=== PATIENT | male | born 1995 | race Caucasian/White ===

== ENCOUNTER 2022-03-31 20:00 | Emergency (ER) | payer OTHER, BC ==
[2022-03-31 20:23] LABS: Glucose,Whole Blood 120 mg/dL (70-110)
[2022-03-31 21:40] LABS: Amorphous Sediment,Urine Rare /hpf; Appearance,Urine Clear (Clear); Bilirubin,Urine Negative (Negative); Blood,Urine Negative (Negative); Color,Urine Yellow; Glucose,Urine (UA) Negative (Negative); Ketones,Urine 1+ (Negative); Leukocyte Esterase,Urine Negative (Negative); Mucus,Urine Many /hpf; Nitrite,Urine Negative (Negative); PH, Urine 5.5 (5.0-8.0); Protein,Urine 1+ (Negative); RBC,Urine <1 /hpf (0-5); Specific Gravity,Urine 1.036 (1.001-1.035); Squamous Epithelial Cell,Urine 1 /hpf (0-4); Urobilinogen,Urine <2.0 mg/dL (<2.0); WBC,Urine 2 /hpf (0-5)
[2022-03-31 22:19] LABS: Basophils % (A) 0 %; Eosinophils # (A) 0.2 k/uL (0-0.7); Eosinophils % (A) 1 %; HCT 46.7 % (39.0-53.0); Lymphocytes # (A) 0.3 k/uL (1.0-4.8); Lymphocytes % (A) 2 %; MCH 28.2 pg (25.0-35.0); MCHC 34.2 g/dL (31.0-37.0); MCV 82.6 fL (80.0-100.0); Monocytes # (A) 0.5 k/uL (0-1.0); Monocytes % (A) 4 %; Neutrophils % (A) 92 %; Platelet Count 224 k/uL (150-450); RBC 5.65 m/uL (4.30-5.90); RDW 12.4 % (11.5-15.5); WBC 14.2 k/uL (3.8-10.6)
[2022-03-31 22:34] LABS: ALT 25 U/L (4-49); AST 29 U/L (17-59); African American GFR (CKD) >90 (>60 ml/min/1.73 sqM); Albumin 4.8 g/dL (3.5-5.0); Alkaline Phosphatase 75 U/L (38-126); Amylase 51 U/L (30-110); Anion Gap 9 mmol/L; Blood Urea Nitrogen 21 mg/dL (9-20); Calcium 8.8 mg/dL (8.4-10.2); Carbon Dioxide 25 mmol/L (22-30); Chloride 105 mmol/L (98-107); Glucose 126 mg/dL (74-99); Lipase 26 U/L (23-300); Non-African American GFR(CKD) >90 (>60 ml/min/1.73 sqM); Potassium 4.6 mmol/L (3.5-5.1); Sodium 139 mmol/L (137-145); Total Bilirubin 1.2 mg/dL (0.2-1.3); Total Protein 7.5 g/dL (6.3-8.2)
[2022-03-31] MEDS ORDERED: MECLIZINE 12.5 MG TAB PO STA (22:41)
[2022-03-31] MEDS ORDERED: SODIUM CHLORIDE 0.9% 1,000 ML IV STA (22:41)
[2022-03-31] MEDS ORDERED: ONDANSETRON 4 MG/2 ML VIAL IVP STA (22:41)
--- NOTE | 2022-04-01 00:31 | ED ---
General Adult HPI - General Chief complaint: Dizziness Stated complaint: light headed,vomiting Time Seen by Provider: 03/31/22 22:24 Source: patient, RN notes reviewed, old records reviewed Mode of arrival: ambulatory Limitations: no limitations - History of Present Illness Initial comments: Patient is a 26-year-old male with past medical history remarkable for intermittent episodes of dizzy spells presents emergency Department complaining of some dizzy spells but also nausea, vomiting, diarrhea with some mild abdominal discomfort. This began over the last 2 days. Believes he may be dehydrated. Presents with family. Denies any chest pain or shortness of breath. States that the dizzy spells and intermittent. He denies any dizziness. Describes as a lightheadedness sensation. Denies any headaches, blurry vision. Denies any known sick contacts. Denies upper respiratory symptoms. Denies any urinary complaints including dysuria or hematuria. Presents for further evaluation at this time. - Related Data Previous Rx's Medication Instructions Recorded Meclizine [Antivert] 25 mg PO BID PRN 5 Days #10 tab 04/01/22 Allergies Allergy/AdvReac Type Severity Reaction Status Date / Time No Known Allergies Allergy Verified 03/31/22 20:23 Review of Systems ROS Statement: Those systems with pertinent positive or pertinent negative responses have been documented in the HPI. Review of Systems: CONST: Denies fever EYES: Denies blurry vision ENT: Denies nasal congestion C/V: Denies Chest pain RESP: Denies shortness of breath GI: Endorses mild lower abdominal discomfort. : Denies dysuria SKIN: Denies rash. MSK: Denies joint pain. NEURO: Denies headache ROS Other: All systems not noted in ROS Statement are negative. Past Medical History Past Medical History: No Reported History Past Surgical History: No Surgical Hx Reported Past Psychological History: No Psychological Hx Reported Smoking Status: Never smoker Past Alcohol Use History: None Reported Past Drug Use History: None Reported General Exam - General Exam Comments Initial Comments: General: Appears in no acute distress. HEAD: Normal with no signs of head trauma. EYES: PERRLA, EOMI, conjunctiva normal, no discharge. ENT: Hearing grossly intact, normal oropharynx. RESPIRATORY: Clear breath sounds bilaterally. No wheezes, rales, or rhonchi. C/V: Regular rate and rhythm. S1 and S2 auscultated, no edema, peripheral pulses 2+ and intact throughout ABD: Abd is soft, nontender, nondistended. No guarding. No peritoneal signs. No rebound tenderness. EXT: Normal range of motion, no obvious deformity SKIN: No rashes or lesions observed on exposed skin. NEURO: Alert and oriented 4. No focal deficits. Cerebellar function intact as evident by normal finger nose testing, [id number] testing. Absence of dysdiadochokinesia. Able to ambulate without difficulty. Limitations: no limitations Course Vital Signs 03/31/22 03/31/22 04/01/22 20:19 22:34 00:03 Temperature 98.4 F 99.1 F 98.9 F Pulse Rate 95 99 89 Respiratory 16 17 17 Rate Blood Pressure 110/76 113/67 115/68 O2 Sat by Pulse 99 96 99 Oximetry 04/01/22 00:38 Temperature 98.7 F Pulse Rate 86 Respiratory 16 Rate Blood Pressure 118/70 O2 Sat by Pulse 99 Oximetry Medical Decision Making - Medical Decision Making Based on the patient's presentation and physical exam, patient presents complaining of lightheadedness/dizziness which is chronic for him but with new onset nausea, vomiting, diarrhea. Vital signs within acceptable limits. Exam is unremarkable. We will obtain basic laboratory studies, as well as viral swabs. Patient was in agreement this plan. He will be given meclizine, IV Zofran, IV fluids. Patient's laboratory studies are remarkable for mild leukocytosis of 14.2 which is likely reactive. Covid, flu, RSV negative. Remainder the patient's labs are within acceptable limits. On reevaluation, patient is feeling improved. I do believe it is safe for him to be discharged home at this time. He was in agreement with this plan. Strict return precautions were discussed I instructed the patient to follow up with their PCP in the next 1-3 days. I explained that the patient should return to the emergency department if they experience any worsening symptoms. Strict return precautions were discussed with the patient. The patient expressed understanding of these instructions. I answered all questions that the patient had. The patient was discharged home in good condition with their prescriptions and follow up information. Was pt. sent in by a medical professional or institution (, PA, REVENUE DIRECTOR, urgent care, hospital, or shelter...) When possible be specific @ -No Did you speak to anyone other than the patient for history (EMS, parent, family, police, friend...)? What history was obtained from this source @ -No Did you review nursing and triage notes (agree or disagree)? Why? @ -I reviewed and agree with nursing and triage notes Were old charts reviewed (outside hosp., previous admission, EMS record, old EKG, old radiological studies, urgent care reports/EKG's, shelter records)? Report findings @ -No old charts were reviewed Differential Diagnosis (chest pain, altered mental status, abdominal pain women, abdominal pain men, vaginal bleeding, weakness, fever, dyspnea, syncope, headache, dizziness, GI bleed, back pain, seizure, CVA, palpatations, mental health)? @ -Dehydration, infection, vertigo, viral syndrome and this list is not all encompassing. EKG interpreted by me (3pts min.). @ -As above X-rays interpreted by me (1pt min.). @ -None done CT interpreted by me (1pt min.). @ -None done U/S interpreted by me (1pt. min.). @ -None done What testing was considered but not performed or refused? (CT, X-rays, U/S, labs)? Why? @ -None What meds were considered but not given or refused? Why? @ -None Did you discuss the management of the patient with other professionals (darleen nevarez ipadmaja Barry, PA, REVENUE DIRECTOR, lab, RT, psych nurse, social services specialist, dye house helper, teacher, housing management officer, immigration case worker)? Give summary @ -No Was smoking cessation discussed for >3mins.? @ -No Was critical care preformed (if so, how long)? @ -No Were there social determinants of health that impacted care today? How? (Homelessness, low income, unemployed, alcoholism, drug addiction, transportatio n, low edu. Level, literacy, decrease access to med. care, group home, rehab)? @ -No Was there de-escalation of care discussed even if they declined (Discuss DNR or withdrawal of care, Hospice)? DNR status @ -No What co-morbidities impacted this encounter? (DM, HTN, Smoking, COPD, CAD, Cancer, CVA, ARF, Chemo, Hep., AIDS, mental health diagnosis, sleep apnea, morbid obesity)? @ -None Was patient admitted / discharged? Hospital course, mention meds given and route, prescriptions, significant lab abnormalities, going to OR and other pertinent info. @ -Discharged home. See above for ED course. Undiagnosed new problem with uncertain prognosis? @ -No Drug Therapy requiring intensive monitoring for toxicity (Heparin, Nitro, Insulin, Cardizem)? @ -No Were any procedures done? @ -No Diagnosis/symptom? @ -Nausea, vomiting, and diarrhea. Acute, or Chronic, or Acute on Chronic? @ -Acute Uncomplicated (without systemic symptoms) or Complicated (systemic symptoms)? @ -Uncomplicated Side effects of treatment? @ -No Exacerbation, Progression, or Severe Exacerbation? @ -No Poses a threat to life or bodily function? How? (Chest pain, [place], IA, pneumonia, PE, COPD, DKA, ARF, appy, cholecystitis, CVA, Diverticulitis, Homicidal, Suicidal, threat to staff... and all critical care pts) @ -No Diagnosis/symptom? @ -Lightheaded Acute, or Chronic, or Acute on Chronic? @ -Acute Uncomplicated (without systemic symptoms) or Complicated (systemic symptoms)? @ -Uncomplicated Side effects of treatment? @ -none Exacerbation, Progression, or Severe Exacerbation] @ -no Poses a threat to life or bodily function? @ -no - Lab Data Result diagrams: 03/31/22 21:51 03/31/22 21:51 Lab Results 03/31/22 03/31/22 03/31/22 Range/Units 20:21 20:50 21:51 WBC 14.2 H (3.8-10.6) k/uL RBC 5.65 (4.30-5.90) m/uL Hgb 16.0 (13.0-17.5) gm/dL Hct 46.7 (39.0-53.0) % MCV 82.6 (80.0-100.0) fL MCH 28.2 (25.0-35.0) pg MCHC 34.2 (31.0-37.0) g/dL RDW 12.4 (11.5-15.5) % Plt Count 224 (150-450) k/uL MPV 8.0 Neutrophils % 92 % Lymphocytes % 2 % Monocytes % 4 % Eosinophils % 1 % Basophils % 0 % Neutrophils # 13.0 H (1.3-7.7) k/uL Lymphocytes # 0.3 L (1.0-4.8) k/uL Monocytes # 0.5 (0-1.0) k/uL Eosinophils # 0.2 (0-0.7) k/uL Basophils # 0.0 (0-0.2) k/uL Sodium (137-145) mmol/L Potassium (3.5-5.1) mmol/L Chloride (98-107) mmol/L Carbon Dioxide (22-30) mmol/L Anion Gap mmol/L BUN (9-20) mg/dL Creatinine (0.66-1.25) mg/dL Est GFR (CKD-EPI)AfAm (>60 ml/min/1.73 sqM) Est GFR (CKD-EPI)NonAf (>60 ml/min/1.73 sqM) Glucose (74-99) mg/dL POC Glucose (mg/dL) 120 H (70-110) mg/dL POC Glu Parent Partner ID Jez Monreal Calcium (8.4-10.2) mg/dL Total Bilirubin (0.2-1.3) mg/dL AST (17-59) U/L ALT (4-49) U/L Alkaline Phosphatase (38-126) U/L Total Protein (6.3-8.2) g/dL Albumin (3.5-5.0) g/dL Amylase (30-110) U/L Lipase (23-300) U/L Urine Color Yellow Urine Appearance Clear (Clear) Urine pH 5.5 (5.0-8.0) Ur Specific [place] 1.036 H (1.001-1.035) Urine Protein 1+ H (Negative) Urine Glucose (UA) Negative (Negative) Urine Ketones 1+ H (Negative) Urine Blood Negative (Negative) Urine Nitrite Negative (Negative) Urine Bilirubin Negative (Negative) Urine Urobilinogen <2.0 (<2.0) mg/dL Ur Leukocyte Esterase Negative (Negative) Urine RBC <1 (0-5) /hpf Urine WBC 2 (0-5) /hpf Ur Squamous Epith Cells 1 (0-4) /hpf Amorphous Sediment Rare H (None) /hpf Urine Mucus Many H (None) /hpf Influenza Type A (PCR) (Not Detectd) Influenza Type B (PCR) (Not Detectd) RSV (PCR) (Not Detectd) SARS-CoV-2 (PCR) (Not Detectd) 03/31/22 03/31/22 Range/Units 21:51 22:44 WBC (3.8-10.6) k/uL RBC (4.30-5.90) m/uL Hgb (13.0-17.5) gm/dL Hct (39.0-53.0) % MCV (80.0-100.0) fL MCH (25.0-35.0) pg MCHC (31.0-37.0) g/dL RDW (11.5-15.5) % Plt Count (150-450) k/uL MPV Neutrophils % % Lymphocytes % % Monocytes % % Eosinophils % % Basophils % % Neutrophils # (1.3-7.7) k/uL Lymphocytes # (1.0-4.8) k/uL Monocytes # (0-1.0) k/uL Eosinophils # (0-0.7) k/uL Basophils # (0-0.2) k/uL Sodium 139 (137-145) mmol/L Potassium 4.6 (3.5-5.1) mmol/L Chloride 105 (98-107) mmol/L Carbon Dioxide 25 (22-30) mmol/L Anion Gap 9 mmol/L BUN 21 H (9-20) mg/dL Creatinine 0.92 (0.66-1.25) mg/dL Est GFR (CKD-EPI)AfAm >90 (>60 ml/min/1.73 sqM) Est GFR (CKD-EPI)NonAf >90 (>60 ml/min/1.73 sqM) Glucose 126 H (74-99) mg/dL POC Glucose (mg/dL) (70-110) mg/dL POC Glu Parent Partner ID Calcium 8.8 (8.4-10.2) mg/dL Total Bilirubin 1.2 (0.2-1.3) mg/dL AST 29 (17-59) U/L ALT 25 (4-49) U/L Alkaline Phosphatase 75 (38-126) U/L Total Protein 7.5 (6.3-8.2) g/dL Albumin 4.8 (3.5-5.0) g/dL Amylase 51 (30-110) U/L Lipase 26 (23-300) U/L Urine Color Urine Appearance (Clear) Urine pH (5.0-8.0) Ur Specific [place] (1.001-1.035) Urine Protein (Negative) Urine Glucose (UA) (Negative) Urine Ketones (Negative) Urine Blood (Negative) Urine Nitrite (Negative) Urine Bilirubin (Negative) Urine Urobilinogen (<2.0) mg/dL Ur Leukocyte Esterase (Negative) Urine RBC (0-5) /hpf Urine WBC (0-5) /hpf Ur Squamous Epith Cells (0-4) /hpf Amorphous Sediment (None) /hpf Urine Mucus (None) /hpf Influenza Type A (PCR) Not Detected (Not Detectd) Influenza Type B (PCR) Not Detected (Not Detectd) RSV (PCR) Not Detected (Not Detectd) SARS-CoV-2 (PCR) Not Detected (Not Detectd) - EKG Data -: EKG Interpreted by Me EKG Comments: 12-lead Electrocardiogram Interpretation Note EKG was reviewed and interpreted by myself. 12-lead ECG performed at 2151 is interpreted by me as revealing normal sinus rhythm at a rate of 96 beats per minute. Right axis deviation. GA interval is 159 milliseconds, QR hinduism is 101 ms, QTc is 376 ms.. There were no ST or T wave abnormalities to suggest myocardial ischemia or injury. R wave progression across the precordium was satisfactory. By my interpretation this EKG is non-diagnostic for acute ischemia. No prior EKG for comparison. Patient does appear to have an in complete right bundle branch block. Disposition Clinical Impression: Nausea vomiting and diarrhea, Lightheaded Disposition: HOME SELF-CARE Condition: Good Instructions (If sedation given, give patient instructions): Dizziness (ED) Prescriptions: Meclizine [Antivert] 25 mg PO BID PRN 5 Days #10 tab PRN Reason: Vertigo Is patient prescribed a controlled substance at d/c from ED?: No Referrals: José Antonio Kennedy DO [Primary Care Provider] - 1-2 days Time of Disposition: 00:01
[2022-04-01 00:39] VITALS: BP 118/70; PULSE 86; RESP 16; TEMP 98.7
== END 2022-04-01 00:39 | disposition home or self-care (01) ==
LOC: EC 20:00
DX: R42 Dizziness and giddiness (principal); R11.2 Nausea with vomiting, unspecified; R19.7 Diarrhea, unspecified; Z20.822 Contact with and (suspected) exposure to COVID-19
CPT/HCPCS: 36415; 93005; 80053; 82150; 83690; 85025; 81001; 87636; 99284; 96374; 96361; J2405